=== PATIENT | female | born 1965 | race Asian ===

== ENCOUNTER 2018-07-13 13:02 | Emergency (ER) | payer OTHER ==
[~2018-07-13] VITALS: Ht 162.6 cm; Wt 81.6 kg
[2018-07-13 13:09] VITALS: BP 125/85
[2018-07-13 13:56] LABS: BASOPHILS % (AUTO) 0.5 % (0.0-2.0); EOSINOPHILS % (AUTO) 0.3 % (0.0-3.0); HEMATOCRIT 33.4 % (37.0-47.0); HEMOGLOBIN 10.7 G/DL (12.0-16.0); LYMPHOCYTES % (AUTO) 13.3 % (20.0-45.0); MEAN CORPUSCULAR VOLUME 98 FL (80-99); MONOCYTES % (AUTO) 8.6 % (1.0-10.0); NEUTROPHILS % (AUTO) 77.4 % (45.0-75.0); PLATELET COUNT 199 K/UL (150-450); RED CELL DISTRIBUTION WIDTH 15.3 % (11.6-14.8); WHITE BLOOD COUNT 5.4 K/UL (4.8-10.8)
[2018-07-13] MEDS ORDERED: Morphine Sulfate 10mg/ml Inj IVP ONE (14:00)
[2018-07-13] MEDS ORDERED: Metoclopramide 10mg/2ml Inj IVP ONE (14:00)
[2018-07-13 14:16] LABS: ANION GAP 19 mmol/L (5-15); BLOOD UREA NITROGEN 20 mg/dL (7-18); CALCIUM 10.5 MG/DL (8.5-10.1); CARBON DIOXIDE 26 MMOL/L (21-32); CHLORIDE 95 MMOL/L (98-107); CREATININE 2.3 MG/DL (0.55-1.30); POTASSIUM 3.2 MMOL/L (3.5-5.1); SODIUM 140 MMOL/L (136-145)
--- NOTE | 2018-07-13 14:17 | Emergency Room Report ---
History of Present Illness General Chief Complaint: Abdominal Pain Present Illness Allergies: Coded Allergies: No Known Allergies (Unverified , 07/13/18) Patient History : 0 Nursing Documentation-PMH Hx Hypertension: Yes Hx Cancer: Yes - [facility] Physical Exam Vital Signs Date Time Temp Pulse Resp B/P (MAP) Pulse Ox O2 Delivery O2 Flow Rate FiO2 07/13/18 12:58 98.6 90 16 125/85 99 Room Air Medical Decision Making Last Vital Signs Date Time Temp Pulse Resp B/P (MAP) Pulse Ox O2 Delivery O2 Flow Rate FiO2 07/13/18 13:09 90 16 Room Air 07/13/18 13:09 98.6 125/85 99 Lauryn Reilly DO Jul 13, 2018 14:17
[2018-07-13 14:20] VITALS: BP 146/86
[2018-07-13 14:27] LABS: ALANINE AMINOTRANSFERASE 22 U/L (12-78); ALBUMIN 4.7 G/DL (3.4-5.0); ALBUMIN/GLOBULIN RATIO 1.1 (1.0-2.7); ALKALINE PHOSPHATASE 108 U/L (46-116); ASPARTATE AMINO TRANSFERASE 34 U/L (15-37); BILIRUBIN,TOTAL 1.4 MG/DL (0.2-1.0)
[2018-07-13 14:28] LABS: BILIRUBIN,DIRECT 0.2 MG/DL (0.0-0.3)
== END 2018-07-13 16:00 | disposition home or self-care (01) ==
LOC: EDBD 13:02 → EMR 13:37
DX: R10.9 Unspecified abdominal pain (principal); I10 Essential (primary) hypertension; D05.10 Intraductal carcinoma in situ of unspecified breast
CPT/HCPCS: 36415; 80053; 82248; 83690; 85025; 96361; 96374; 96375; 99284; J2270; J2765; S0028